=== PATIENT | male | born 1985 | race Caucasian/White ===

== ENCOUNTER 2023-09-08 20:54 | Emergency (ER) | payer OTHER, SELFPAY ==
[2023-09-08 21:34] VITALS: BP 123/88; PULSE 118; RESP 20; TEMP 36.9; O2SAT 96; BMI 40.6
--- NOTE | 2023-09-08 21:50 | ED_ITS ---
HPI - General Adult General Chief complaint: General Medical Stated complaint: fever, body aches, cold symptom, dizziness Time Seen by Provider: 09/08/23 21:50 Source: patient Mode of arrival: ambulatory Limitations: no limitations History of Present Illness HPI narrative: Patient is a 38 year old assigned male at with no reported medical history presenting to the emergency department today with body aches, cough, congestion, and fever. Patient states that over the last 3 days he has had body aches, congestion, cough, and a fever. Patient denies any dizziness, lightheadedness, abdominal pain, nausea, vomiting, chills, blurry vision, double vision, loss of vision, chest pain, difficulty breathing, shortness of breath, back pain, night sweats, pain with urination, increased urinary frequency, increased urinary urgency, blood in his urine or stool, syncope or a near syncopal episode, recent trauma or falls, bowel incontinence, bladder incontinence, bowel retention, bladder retention, or any other complaints at this time. Onset (ago): day(s) (3) Severity: mild Severity scale (1-10): 3 Relieving factors: none Exacerbating factors: none Associated symptoms: cough Treatments prior to arrival: none Related Data Previous Rx's ?Medication ?Instructions ?Recorded doxycycline hyclate 100 mg tablet 100 mg PO BID 7 days #14 tabs 09/08/23 Allergies Allergy/AdvReac Type Severity Reaction Status Date / Time No Known Allergies Allergy Verified 09/08/23 21:37 Review of Systems Constitutional: Constitutional: Reports no additional constitutional complaints, Reports body ache(s), Denies chills, Reports fever(s) and Denies night sweats Eyes: Eyes: Reports no additional eye complaints, Denies blurry vision, Denies change in vision, Denies diplopia, Denies eye discharge, Denies loss of vision and Denies eye pain ENT: Denies dizziness and Reports nasal congestion Cardiovascular: Cardiovascular: Reports no additional cardiovascular complaints, Denies chest pain, Denies lightheadedness, Denies Loss of Consciousness and Denies dyspnea Respiratory: Respiratory: Reports no additional respiratory complaints, Reports cough and Denies dyspnea Gastrointestinal: Gastrointestinal: Reports no additional gastrointestinal complaints, Denies abdominal pain, Denies melena, Denies hematochezia, Denies change in bowel habits and Denies change in stool character Genitourinary: Genitourinary: Reports no additional male genitourinary complaints, Denies hematuria, Denies oliguria, Denies difficulty urinating, Denies dysuria, Denies urinary frequency, Denies urinary hesitancy, Denies urinary incontinence and Denies urinary urgency Musculoskeletal: Musculoskeletal: Reports no additional musculoskeletal complaints, Denies numbness and Denies tingling Neurologic: Denies dizziness, Denies loss of vision, Denies numbness and Denies tingling Psychiatric: Psychiatric: Reports no additional psychiatric complaints Endocrine: Endocrine: Reports no additional endocrine complaints Hematologic/Lymphatic: Hematologic/Lymphatic: Reports no additional hematologic/lymphatic complaints Allergic/Immunologic: Allergic/Immunologic: Reports no additional allergic/immunologic complaints PMFSH Past Medical History Attestation statement: The following information was validated with the patient. Source: old records reviewed and nursing notes reviewed Social History Social History Advance Directives: No Advance Directives Information Provided: No Do you have a plan to hurt others: No Plan Physical Exam ED Vital Signs: Vital Signs - 24 hr 09/08/23 21:34 09/08/23 23:29 Temperature 98.5 F 97.9 F Pulse Rate 118 H 100 Respiratory Rate 20 20 Blood Pressure 123/88 138/86 Pulse Oximetry 96 98 Oxygen Delivery Method Room Air Room Air BMI result Body Mass Index 40.6 Const General: cooperative, no acute distress, alert and awake Nutritional Appearance: well nourished Orientation/consciousness: patient oriented x3 Limitations: no limitations HENMT Head: Yes normal to inspection and Yes atraumatic Ears: hearing grossly normal bilaterally and external ears normal General nose exam: Normal external nose present, no nasal discharge noted and no epistaxis Face and sinus: Yes normal facial exam, No abrasion and No laceration Mouth: Normal oral and palatal mucosa present, no drooling and no muffled voice Eyes General: appearance normal, both eyes and all related structures Periorbital: periorbital findings normal Eyelids: Yes eyelids normal Conjunctivae: conjunctivae normal Pupils: Equal, round and reactive pupils present EOM: EOMs intact bilaterally Neck Neck: Yes normal visual inspection, Yes full ROM and Yes no lymphadenopathy Chest Chest palpation & inspection: normal inspection of the chest Resp Effort & Inspection: normal respiratory effort and able to speak in complete sentences GI Inspection: Yes normal to inspection Neuro General: patient oriented x3 and moves all extremities Cranial nerves: Yes Equal, round and reactive pupils present Cognition (Neuro): normal cognition Motor exam (neuro): 5/5 motor strength present throughout Sensory Exam: Normal double simultaneous stimulation for sensation Coordination: [id number] test normal Extrem General: Yes normal to inspection, Yes full ROM and Yes capillary refill normal Psych Appearance: grossly normal Mental Status: mental status grossly normal Affect: normal affect Attitude: cooperative Thought process: Normal thought process present Thought content: Normal thought content present Insight: Good insight present (Psych) Medical Decision Making Medical Decision Making MDM Narrative: Patient is a 38 year old assigned male at with no reported medical history presenting to the emergency department today with a cough, fever, body aches, and nasal congestion. Patient's physical exam was unremarkable. Patient's strep, COVID-19, influenza, and RSV tests were all negative. I explained my physical exam findings as well as all test results to the patient. I answered all questions asked by the patient. I stressed the importance of the patient taking his medication as prescribed. I stressed the importance of the patient following up with his primary care provider. I stressed the importance of the patient returning to the emergency department immediately if his symptoms were to worsen or if he were to develop any dizziness, shortness of breath, difficulty breathing, chest pain, blurry vision, loss of vision, nausea, vomiting, abdominal pain, fever, chills, back pain, or any other complaints. Patient verbalized agreement and understanding with this treatment plan and discharge. Differential Diagnosis Differential Diagnoses: The differential diagnosis associated with the prese ntation includes Influenza COVID-19 RSV Sinusitis Viral illness Admission/Observation Consideration of admission/observation: Escalation of care including admission/observation considered Patient would have been admitted to the hospital had his work up had any findings where hospital admission was appropriate and his clinical presentation warranted hospital admission. Lab Data [facility] Lab Attestation statement: I reviewed the patient's lab results. My interpretation of these studies and their corresponding values is that they are grossly normal. Labs: Lab Results 09/08/23 09/08/23 Range/Units 22:18 22:20 Influenza Type A (PCR) NEGATIVE (Negative) Influenza Type B (PCR) NEGATIVE (Negative) RSV RNA Qual (PCR) NEGATIVE (Negative) SARS-CoV-2 RNA (RT-PCR) NEGATIVE (Negative) S. pyogenes GrpA DOMINICK Negative (Negative) Tests considered The following testing was considered but not selected: A chest x-ray was considered however, the patient's current presentation did not warrant it. I discussed this with the patient who verbalized agreement and understanding. Prescription Management I considered prescription management with: Antibiotic (given the patient's current clinical presentation, antibiotic for sinusitis prescribed.) Discharge Plan Discharge Clinical Impression: Sinusitis, URI (upper respiratory infection) Patient Disposition: Home, Self-Care Instructions: Sinusitis (ED), Upper Respiratory Infection (DC) Additional Instructions: Take your medication as prescribed. Follow up with your primary care provider. Return to the emergency department immediately if your symptoms worsen or if you develop any dizziness, shortness of breath, difficulty breathing, chest pain, blurry vision, loss of vision, nausea, vomiting, abdominal pain, fever, chills, back pain, or any other complaints. Prescriptions: New doxycycline hyclate 100 mg tablet 100 mg PO BID 7 Days Qty: 14 0RF Referrals: [facility] Family [facility] [Provider Group] (Call to establish and follow up with a primary care provider. If you already have a primary care provider, please follow up with them.) [facility] [Provider Group] [facility] [Provider Group] Stand Alone Forms: Work/School Release Interventions: ED Discharge Assessment Last Done: 09/08/23 23:29 Discharge Date/Time: 09/08/23 23:30 Print Language: Yakut
[2023-09-08 22:32] LABS: IDNOW Serial# 08D9AD1C; Strep A Nucleic Acid Negative (Negative)
[2023-09-08 23:05] LABS: Influenza A PCR NEGATIVE (Negative); Influenza B PCR NEGATIVE (Negative); Resp Syncy Virus RNA Qual PCR NEGATIVE (Negative); SARS COV2 PCR INHOUSE NEGATIVE (Negative)
[2023-09-08 23:29] VITALS: BP 138/86; PULSE 100; RESP 20; TEMP 36.6; O2SAT 98
== END 2023-09-08 23:30 | disposition home or self-care (01) ==
PROVIDERS: Emergency Medicine; Physician Assistant Medical; Emergency Provider Internal Medicine
DX: J01.90 Acute sinusitis, unspecified (principal)
CPT/HCPCS: 0241U; 87651; 99282; 99283

== ENCOUNTER 2025-03-01 23:56 | Emergency (ER) | payer OTHER, SELFPAY ==
[2025-03-02 00:03] VITALS: BP 161/99; PULSE 99; RESP 22; TEMP 36.6; O2SAT 95; BMI 41.6
--- NOTE | 2025-03-02 00:04 | ED.GENADULT ---
HPI - General Adult General Chief complaint: General Medical Stated complaint: headache, pain when urinating Time Seen by Provider: 03/02/25 00:35 Source: patient Mode of arrival: ambulatory Limitations: no limitations History of Present Illness ED Provider: Dr. Nadine Camarillo HPI narrative: 39-year-old male with a history of chronic sinusitis presenting with frontal headache and photophobia ongoing for the last couple of days. Admits that he has had issues with sinus problems that have been ongoing for months. Admits that this time of year is difficult for him because he is allergic to ?everything in the air?. Denies associated fever. No neck stiffness. No vision changes, numbness/tingling/weakness of the extremities, vomiting, bowel changes, urinary complaints, chest pain or difficulty breathing. Has been trying to use Benadryl and Claritin for his sinusitis but admits that they do not really help. Took his 's Toradol for headache prior to arrival without relief of pain. Related Data Previous Rx's ?Medication ?Instructions ?Recorded doxycycline hyclate 100 mg tablet 100 mg PO BID 7 days #14 tabs 09/08/23 ettjknbjcw-tadzxrtstlvok-mswfrrys 1 cap PO TID PRN headache #10 caps 03/02/25 50 mg-300 mg-40 mg capsule (Fioricet) fluticasone propionate 50 1 spray intranasal DAILY #16 grams 03/02/25 mcg/actuation nasal spray,suspension (Flonase Allergy Relief) prednisone 50 mg tablet 50 mg PO DAILY 5 days #5 tabs 03/02/25 Allergies Allergy/AdvReac Type Severity Reaction Status Date / Time No Known Allergies Allergy Verified 03/02/25 00:08 Review of Systems Review of Systems: as per HPI, full review of systems performed and negative but for the above mentioned pertinent positives and negatives. [facility] Social History Social History Advance Directives: No Advance Directives Information Provided: Yes Do you have a plan to hurt others: No Plan Physical Exam ED Exam Exam: GENERAL: Ill-Appearing, appears uncomfortable. SKIN: Normal skin color for ethnicity, warm, dry, no rashes noted. HEENT:? Normocephalic, atraumatic, no stridor, moist mucous membranes, dentition intact, EOMI, PERRLA, clear rhinorrhea, bilateral scleral injection. NECK: Soft, supple, full ROM, midline structures nontender, no step-offs, no deformities, no lymphadenopathy. CHEST: Heart regular rhythm, no murmurs, symmetric chest rise and fall. PULMONARY: Clear to auscultation bilaterally, diminished at the bases, no labored breathing, no wheezes/rhales/rhonchi. ABDOMINAL: Soft, nondistended, nontender, positive bowel sounds in all quadrants. : Deferred. MUSCULOSKELETAL: Normal tone, full range of motion, no deformities, no peripheral edema. NEURO: Alert and oriented x3, CN II through XII intact, equal strength and sensation bilateral upper and lower extremities, no focal neurologic deficits.? PSYCHIATRIC: Flat affect, fluid speech, good eye contact and appropriate demeanor. Vital Signs: Vital Signs - 24 hr 03/02/25 00:03 Temperature 97.9 F Pulse Rate 99 Respiratory Rate 22 H Blood Pressure 161/99 H Pulse Oximetry 95 Oxygen Delivery Method Room Air BMI result Body Mass Index 41.6 Course Course Course Narrative: RME: 39 yo m left sided headache, radiates down left jaw with nasal congestion. Also complaining of dysuria. On exam appears to have URI with nasal rhinorrhea. Medical screening completed. Patient is stable Medications Administered Discontinued Medications Generic Name Dose Route Start Last Admin Trade Name Freq PRN Reason Stop Dose Admin Dexamethasone Sodium Phosphate 10 mg 03/02/25 01:56 03/02/25 02:03 Dexamethasone Sod Phosphate 10 Mg/Ml Vial IVPUSH 03/02/25 01:57 10 mg ONCE ONE Administration Lactated Ringer's 1,000 mls @ 999 mls/hr 03/02/25 01:45 03/02/25 03:06 Lr IV 03/02/25 02:45 Infused .Q1H1M ONE Infusion Ketorolac Tromethamine 15 mg 03/02/25 01:45 03/02/25 02:03 Ketorolac Tromethamine 15 Mg/Ml Vial IVPUSH 03/02/25 01:46 15 mg ONCE ONE Administration Metoclopramide HCl 10 mg 03/02/25 01:50 03/02/25 02:03 Metoclopramide Hcl 10 Mg/2 Ml Vial IVPUSH 03/02/25 01:51 10 mg ONCE ONE Administration Medical Decision Making Medical Decision Making MDM Narrative: Patient presents with a chief complaint of headache. ? The differential diagnosis on this patient includes but is not limited to migraine headache, tension headache, cluster headache, subarachnoid hemorrhage, dissection, venous thrombosis, meningitis, sinusitis, bleeding or tumor.? Based on history and physical exam, appropriate work-up was initiated. ? Medicated with migraine cocktail for headache. Patient feeling significantly improved after Decadron, migraine cocktail. Suspect sinusitis due to chronic allergies that are poorly treated at home. Provided with Nasonex, steroid burst and Fioricet for his headaches. Discussed follow up and return precautions. Discharged in stable condition. Differential Diagnosis Differential Diagnoses: The differential diagnosis associated with the presentation includes (As above) Admission/Observation Consideration of admission/observation: Escalation of care including admission/observation considered Lab Data [facility] Lab Attestation statement: I reviewed the patient's lab results. 03/02/25 00:22 03/02/25 00:22 Labs: Lab Results 03/02/25 Range/Units 00:22 WBC 12.0 H (4.8-10.8) X10*3/uL RBC 4.60 (4.60-5.80) X10*6/uL Hgb 13.2 L (14.0-18.0) g/dl Hct 39.5 L (42.0-52.0) % MCV 85.9 (80.0-98.0) fL MCH 28.7 (27.0-33.0) pg MCHC 33.4 (31.0-36.0) g/dl RDW 13.0 (11.0-16.0) % Plt Count 279 (160-400) X10*3/uL MPV 9.4 (9.4-12.4) fL Immature Gran % (Auto) 0.2 (0.0-0.4) % Neut % (Auto) 67.5 (45-73) % Lymph % (Auto) 17.7 L (20-40) % [place] % (Auto) 11.4 H (2-11) % Eos % (Auto) 2.8 (0-4) % Baso % (Auto) 0.4 (0-2) % Lymph # (Auto) 2.1 (1.2-4.9) X10*3/uL [place] # (Auto) 1.4 H (0.1-1.2) X10*3/uL Eos # (Auto) 0.3 (0.0-0.4) X10*3/uL Baso # (Auto) 0.1 (0.0-0.2) X10*3/uL Abs Immat Gran (auto) 0.03 (0.00-0.03) X10*3/uL Absolute Neuts (auto) 8.1 (2.0-8.3) x10*3/uL Absolute Nucleated RBC 0.000 (0.0-0.012) X10*3/uL Nucleated RBC % (auto) 0.0 (0.0-0.2) /100WBC Sodium 138 (135-145) mmol/L Potassium 4.1 (3.3-5.1) mmol/L Chloride 102 (96-108) mmol/L Carbon Dioxide 27 (22-29) mmol/L Anion Gap 13 (12-20) BUN 18 H (9-16) mg/dL Creatinine 0.94 (0.5-1.4) mg/dL Estim Creat Clear Calc 132.4 Estimated GFR > 60 Random Glucose 114 (60-115) mg/dL Calcium 9.0 (8.4-10.2) mg/dL Magnesium 1.9 (1.6-2.6) mg/dL Total Bilirubin 0.2 (0.0-1.0) mg/dL AST 19 (5-37) U/L ALT 18 (0-40) U/L Alkaline Phosphatase 95 (39-117) U/L Total Protein 7.5 (6.5-8.0) g/dL Albumin 4.3 (3.5-5.0) g/dL Lipase 26 (8-78) U/L COVID-19 (ERIK) Negative (Negative) COVID-19 Clin Com See Note Influenza Type A (DOMINICK) Negative (Negative) Influenza Type B (DOMINICK) Negative (Negative) Influenza A & B Note See Note Independent Historian Clinical information obtained from an independent historian. History obtained from or confirmed by: Spouse External Record Review External record reviewed: Inpatient record Prescription Management I considered prescription management with: Pain Medication and Other (Steroids) Chronic Conditions Patient?s care impacted by: Other (Seasonal allergies) Discharge Plan Discharge Clinical Impression: Migraine headache, Acute viral bronchitis Patient Disposition: Home, Self-Care Instructions: Migraine Headache (ED), Acute Bronchitis (ED) Additional Instructions: Use Fioricet for headaches as needed. Do not take this medication if you are driving as it can make you drowsy. Use prednisone for the next 5 days for your sinus congestion. You may also continue to use Flonase for your sinuses after the prednisone is completed. Try taking a sinus medication every single day for the next 3 months to help with your sinusitis. Return to the emergency department if you develop a fever, have worsening headaches despite medications, notice a rash on your lower extremities or if you start vomiting and can not tolerate food. Prescriptions: New prednisone 50 mg tablet 50 mg PO DAILY 5 Days Qty: 5 0RF zoiosuljhp-euducoruhstab-czkz [Fioricet] 50-300-40 mg capsule 1 cap PO TID PRN (Reason: headache) Qty: 10 0RF fluticasone propionate [Flonase Allergy Relief] 50 mcg/actuation spray,suspension 1 spray intranasal DAILY Qty: 16 0RF Rx Instructions: administer into each nostril No Action doxycycline hyclate 100 mg tablet 100 mg PO BID 7 Days Qty: 14 0RF Stand Alone Forms: Work/School Release Print Language: Cameroonian
[2025-03-02 00:30] LABS: MANUAL DIFF FLAG NO
[2025-03-02 00:31] LABS: Hematocrit 39.5 % (42.0-52.0); Hemoglobin 13.2 g/dl (14.0-18.0); Imm Gran Abs Auto 0.03 X10*3/uL (0.00-0.03); Imm Gran Pct Auto 0.2 % (0.0-0.4); Lymphocytes Absolute Auto 2.1 X10*3/uL (1.2-4.9); Mean Corpuscular HGB Conc 33.4 g/dl (31.0-36.0); Mean Corpuscular Hemoglobin 28.7 pg (27.0-33.0); Mean Corpuscular Volume 85.9 fL (80.0-98.0); NRBC Abs Auto 0.000 X10*3/uL (0.0-0.012); NRBC Pct Auto 0.0 /100WBC (0.0-0.2); Platelet Count 279 X10*3/uL (160-400); Red Blood Count 4.60 X10*6/uL (4.60-5.80); White Blood Count 12.0 X10*3/uL (4.8-10.8)
[2025-03-02 00:46] LABS: Alanine Aminotransferase 18 U/L (0-40); Albumin Level 4.3 g/dL (3.5-5.0); Alkaline Phosphatase 95 U/L (39-117); Anion Gap 13 (12-20); Aspartate Amino Transferase 19 U/L (5-37); Blood Urea Nitrogen 18 mg/dL (9-16); Calcium 9.0 mg/dL (8.4-10.2); Carbon Dioxide 27 mmol/L (22-29); Chloride 102 mmol/L (96-108); Creatinine Clr Calc Pharmacy 132.4; Estimated Glomerular Filt Rate > 60; Lipase 26 U/L (8-78); Magnesium 1.9 mg/dL (1.6-2.6); Potassium 4.1 mmol/L (3.3-5.1); Sodium 138 mmol/L (135-145); Total Protein 7.5 g/dL (6.5-8.0)
[2025-03-02 00:53] LABS: COVID-19 Test Negative (Negative); IDNOW Serial# 55D5AD1C; IDNOW Serial# 58CA691E; Influenza B2 Negative (Negative)
[2025-03-02] MEDS: Lactated Ringers 1,000 ML 999 ML IV (02:04)
[2025-03-02 03:29] VITALS: BP 143/90; PULSE 87; RESP 16; TEMP 36.6; O2SAT 98
== END 2025-03-02 03:30 | disposition home or self-care (01) ==
PROVIDERS: Emergency Provider Emergency Medicine
DX: G43.909 Migraine, unspecified, not intractable, without status migrainosus (principal); J20.8 Acute bronchitis due to other specified organisms; Z03.818 Encounter for observation for suspected exposure to other biological agents ruled out; R30.9 Painful micturition, unspecified
CPT/HCPCS: 80053; 83690; 83735; 85025; 87502; 87635; 96361; 96374; 96375; 99284; J1100; J1885; J2765; J7120